=== PATIENT | female | born 1955 | race Caucasian/White ===

== ENCOUNTER → 2017-12-13 | Outpatient (CLI) | payer OTHER ==
[~2017-12-13] VITALS: Ht 172.7 cm; Wt 77.1 kg
[~2017-12-13] MED LIST: NOHOMEMEDS; ONE DAILY WOME1 EACH PO; SYMBICORT60 INHALA1 IH; TUMS X-STR300 MG PO
== END | disposition home or self-care (01) ==
LOC: AMB 07:00
PROC: 0DJD8ZZ Inspection of Lower Intestinal Tract, Via Natural or Artificial Opening Endoscopic (ICD-10-PCS; principal; 2017-12-13)
DX: Z12.11 Encounter for screening for malignant neoplasm of colon (principal); Z91.040 Latex allergy status